=== PATIENT | male | born 1980 ===

== ENCOUNTER 2018-10-30 13:48 | Emergency (ER) | payer SELFPAY ==
[2018-10-30 14:01] VITALS: BP 120/69
--- NOTE | 2018-10-30 16:00 | UC ---
Dental HPI - HPI Summary HPI Summary: 1 WEEK OF GRADUALLY WORSENING RIGHT LOWER DENTAL PAIN THAT HE STATES OVER THE PAST 2 DAYS HAS BECOME EXCRUCIATING. NO FEVER OR NAUSEA. HAS DIFFUSELY POOR DENTITION AND MULTIPLE FILLINGS. STATES HE WAS RECENTLY INCARCERATED AND HIS TEETH GOT MARKEDLY WORSE DURING THIS TIME. HE DOES NOT HAVE A DENTIST. IS UNABLE TO SLEEP DUE TO THE DISCOMFORT. - History of Current Complaint Chief Complaint: UCDentalProblem Stated Complaint: DENTAL PAIN Time Seen by Provider: 10/30/18 15:32 Hx Obtained From: Patient Onset/Duration: Gradual Onset, Lasting Days, Still Present Severity: Moderate Pain Intensity: 6 Pain Scale Used: 0-10 Numeric Aggravating Factor(s): Heat, Cold, Chewing Alleviating Factor(s): Nothing Related History: Previous Dental Care on Same Tooth - Allergies/Home Medications Allergies/Adverse Reactions: Allergies Allergy/AdvReac Type Severity Reaction Status Date / Time No Known Allergies Allergy Verified 10/30/18 14:01 Home Medications: Home Medications Ibuprofen 400 mg PO ONCE PRN 10/30/18 [History Confirmed 10/30/18] PMH/Surg Hx/FS Hx/Imm Hx Previously Healthy: Yes - Surgical History Surgical History: None - Family History Known Family History: Positive: Non-Contributory - Social History Alcohol Use: None Substance Use Type: Marijuana Smoking Status (MU): Light Every Day Tobacco Smoker Amount Used/How Often: 1/2ppd Household Exposure Type: Cigarettes Review of Systems All Other Systems Reviewed And Are Negative: Yes Constitutional: Positive: Negative ENT: Positive: Dental Pain Respiratory: Positive: Negative Cardiovascular: Positive: Negative Gastrointestinal: Positive: Negative Physical Exam Triage Information Reviewed: Yes Appearance: Well-Appearing, Well-Nourished, Pain Distress - mild Vital Signs: Initial Vital Signs Temp 99 F 10/30/18 13:56 Pulse 70 10/30/18 13:56 Resp 18 10/30/18 13:56 BP 120/69 10/30/18 13:56 Pulse Ox 97 10/30/18 13:56 Vital Signs Reviewed: Yes Eyes: Positive: Conjunctiva Clear ENT: Positive: Hearing grossly normal Dental: Positive: Percussion Tenderness @ - #30, Gross Decay/Caries @ Neck: Positive: Supple, Nontender, No Lymphadenopathy Respiratory: Positive: No respiratory distress, No accessory muscle use Cardiovascular: Positive: Pulses Normal Abdomen Description: Positive: Soft Musculoskeletal: Positive: No Edema Neurological: Positive: Alert Psychological: Positive: Age Appropriate Behavior Skin: Negative: Rashes Dental Complaint Course/Dx - Course Course Of Treatment: PATIENT WITH MULTIPLE FILLINGS. TOOTH #30 WITH GROSS DECAY. THIS SEEMS TO BE THE SOURCE OF HIS DISCOMFORT. WILL COVER FOR INFECTION WITH AUGMENTIN TWICE DAILY FOR 10 DAYS. PERIDEX MOUTH RINSE. IBUPROFEN FOR DISCOMFORT AND HYDROCODONE FOR BREAKTHROUGH. COUNSELED ON ORAL HYGIENE. LIST OF DENTAL PROVIDERS PROVIDED. - Differential Dx/Diagnosis Provider Diagnosis: Dental decay Discharge - Sign-Out/Discharge Documenting (check all that apply): Patient Departure All imaging exams completed and their final reports reviewed: No Studies - Discharge Plan Condition: Stable Disposition: HOME Prescriptions: Amoxicillin/Clavulanate TAB* [Augmentin TAB 875*] 875 mg PO BID #20 tab Chlorhexidine MW 0.12% 473ML* [Peridex Mouth Wash 0.12%*] 15 ml SWISH SPIT BID # 1 bottle HYDROcodone/ACETAMIN 5-325 MG* [Fabens 5-325 TAB*] 1 tab PO Q6H PRN #10 tab MDD 4 PRN Reason: Pain Ibuprofen TAB* [Motrin TAB* 800 MG] 800 mg PO Q8H PRN #30 tab PRN Reason: Pain Patient Education Materials: Toothache (ED) Referrals: [facility] [Outside] - If Needed Additional Instructions: TAKE THE ANTIBIOTICS FOR THE FULL COURSE. RINSE YOUR MOUTH WITH WATER AFTER EATING OR DRINKING ANYTHING. ANTISEPTIC MOUTH RINSE TWICE DAILY. IBUPROFEN AND TYLENOL NEEDED FOR DISCOMFORT. HYDROCODONE FOR BREAKTHROUGH. FOLLOW-UP WITH A DENTIST RAISSA. IBUPROFEN MAX DOSE: 800MG EVERY 8 HRS TYLENOL MAX DOSE: 1000MG (2 EXTRA STRENGTH TABS) EVERY 8 HRS OR 650MG (2 REGULAR TABS) EVERY 6 HRS [facility] Dentist Office [address], [place] [address] Yinka Cleveland, [facility] [address], [place] [address] William Gutierrez D.D.SDemetris [address], [place], [place] [id number] Opens at 8am - Billing Disposition and Condition Condition: STABLE Disposition: Home
== END 2018-10-30 16:09 | disposition home or self-care (01) ==
LOC: UCEAST 13:48
DX: K02.9 Dental caries, unspecified (principal); F17.210 Nicotine dependence, cigarettes, uncomplicated
CPT/HCPCS: 99202; G0463

== ENCOUNTER 2019-02-05 17:41 | Emergency (ER) | payer MEDICAID ==
[2019-02-05] MEDS ORDERED: Lidocaine 1% MPF ** 5 ML VIAL INJ ONE (18:19)
--- NOTE | 2019-02-05 18:21 | ED ---
Skin Complaint - HPI Summary HPI Summary: Pt is a 38 y/o M presenting to the ED with a chief skin complaint. He states he believes it may have been a spider bite, so he tried to treat it with tea tree oil and a warm compress, but it only got bigger and harder. It is on his abdomen right next to his umbilicus. He notes erythema and edema. He denies fever, chills, nausea, and vomiting. - History of Current Complaint Chief Complaint: EDRashSkinAbscess Time Seen by Provider: 02/05/19 18:11 Stated Complaint: SPIDER BITE PER PATIENT Hx Obtained From: Patient Onset/Duration: Started Hours Ago, Still Present Skin Exposure Onset/Duration: Hours Ago Timing: Constant, Lasting Hours Onset Severity: Moderate Current Severity: Severe Pain Intensity: 8 Pain Scale Used: 0-10 Numeric Skin Location: Abdomen Character: Swelling, Redness Aggravating Symptom(s): Nothing Alleviating Symptom(s): Nothing Associated Signs & Symptoms: Negative Related History: Possible Reaction to: Insect - Allergy/Home Medications Allergies/Adverse Reactions: Allergies Allergy/AdvReac Type Severity Reaction Status Date / Time No Known Allergies Allergy Verified 10/30/18 14:01 PMH/Surg Hx/FS Hx/Imm Hx Previously Healthy: Yes Endocrine/Hematology History: Denies: Hx Diabetes Cardiovascular History: Denies: Hx Hypertension Infectious Disease History: No Infectious Disease History: Denies: Traveled Outside the [place] in Last 30 Days - Family History Known Family History: Negative: Diabetes - Social History Alcohol Use: None Hx Substance Use: Yes Substance Use Type: Reports: Marijuana Hx Tobacco Use: Yes Smoking Status (MU): Light Every Day Tobacco Smoker Amount Used/How Often: 1/2ppd Review of Systems Negative: Fever, Chills Negative: Vomiting, Nausea Positive: Edema Positive: Other - possible abscess All Other Systems Reviewed And Are Negative: Yes Physical Exam - Summary Physical Exam Summary: Constitutional: Well-developed, Well-nourished, Alert. (-) Distressed Skin: Warm, Dry. Erythema under the umbilicus with a central area of induration. HENT: Normocephalic; Atraumatic Eyes: Conjunctiva normal Neck: Musculoskeletal ROM normal neck. (-) JVD, (-) Stridor, (-) Tracheal deviation Cardio: Rhythm regular, rate normal, Heart sounds normal; Intact distal pulses; Radial pulses are 2+ and symmetric. (-) Murmur Pulmonary/Chest wall: Effort normal. (-) Respiratory distress, (-) Wheezes, (-) Rales Abd: Soft, (-) tenderness, (-) Distension, (-) Guarding, (-) Rebound Musculoskeletal: (-) Edema Lymph: (-) Cervical adenopathy Neuro: Alert, Oriented x3 Psych: Mood and affect Normal Bedside US shows fluid pocket Triage Information Reviewed: Yes Vital Signs On Initial Exam: Initial Vitals Temp Pulse Resp BP Pulse Ox 99.2 F 90 16 133/84 98 02/05/19 17:44 02/05/19 17:44 02/05/19 17:44 02/05/19 17:44 02/05/19 17:44 Vital Signs Reviewed: Yes Procedures - Sedation Patient Received Moderate/Deep Sedation with Procedure: No - Incision and Drainage Umbilicus abscess Site: Just to the left of the umbilicus. Small amount of bloody drainage came out Anesthesia: Local, Lidocaine - 1%, 8ccs. Instrument(s): Scalpel - 11 Diagnostics - Vital Signs Vital Signs Temp Pulse Resp BP Pulse Ox 02/05/19 17:44 99.2 F 90 16 133/84 98 - Laboratory Lab Statement: Any lab studies that have been ordered have been reviewed, and results considered in the medical decision making process. Course/Dx - Course Course Of Treatment: Patient is here with a superficial abdominal wall abscess. Patient had successful incision and drainage with a small amount of serosanguineous fluid return. Patient was started on antibiotics and given his first dose here. - Diagnoses Provider Diagnoses: Abdominal wall abscess Discharge ED - Sign-Out/Discharge Documenting (check all that apply): Patient Departure - Discharge Plan Condition: Stable Disposition: HOME Prescriptions: Sulfamethox/Trimethoprim DS* [Bactrim DS 800/160 TAB*] 1 tab PO BID 7 Days #14 tab Patient Education Materials: Abscess (ED) Referrals: Johanny Dominguez NP [Primary Care Provider] - Additional Instructions: Please follow up with your primary care provider within the next 1-3 days. Take your antibiotics as prescribed. Come back to the emergency department with any new or worsening symptoms, including fever, chills, nausea, or vomiting. - Billing Disposition and Condition Condition: STABLE Disposition: Home - Attestation Statements Document Initiated by Ramirez: Yes Documenting Scribe: Anastasiia Kaufman Provider For Whom Scribe is Documenting (Include Credential): Philippe Magaña MD. Scribe Attestation: Anastasiia Zayas, scribed for Philippe Magaña MD. on 02/06/19 at 1229. Scribe Documentation Reviewed: Yes Provider Attestation: The documentation as recorded by the scribe, Anastasiia Kaufman accurately reflects the service I personally performed and the decisions made by , Philippe Magaña MD. Status of Scribe Document: Viewed
[2019-02-05] MEDS ORDERED: Sulfamethox/Trimethoprim DS 800/160* TAB PO ONE (18:31)
[2019-02-05] MEDS ORDERED: Ibuprofen TAB* 600 MG PO ONE (19:13)
[2019-02-05 19:19] VITALS: BP 139/102
== END 2019-02-05 19:15 | disposition home or self-care (01) ==
LOC: ED 17:41
DX: L02.211 Cutaneous abscess of abdominal wall (principal); F17.200 Nicotine dependence, unspecified, uncomplicated; Z79.899 Other long term (current) drug therapy
CPT/HCPCS: 10060; 99282; A9270-GY